=== PATIENT | male | born 1990 | race African-American/Black ===

== ENCOUNTER 2017-01-30 18:42 | Emergency (ER) | payer MEDICAID ==
[~2017-01-30] VITALS: Ht 198.1 cm; Wt 105.0 kg
[~2017-01-30 18:42] MED LIST: GUAI100G
[2017-01-30] MEDS ORDERED: KETOROLAC 30MG/ML VIAL IV STA (20:24)
[2017-01-30] MEDS ORDERED: ONDANSETRON HCL 4MG/2ML VIAL IV STA (20:24)
[2017-01-30 20:46] LABS: BASOPHILS % 0.4 % (0.0-2.0); EOSINOPHILS % 0.7 % (0.0-5.0); HEMATOCRIT. 39.1 % (42.0-52.0); HEMOGLOBIN. 13.1 g/dL (14.0-18.0); LYMPHOCYTES % 37.2 % (20.0-50.0); MEAN CORPUSCULAR HEMOGLOBIN 30.9 pg (28.0-32.0); MEAN CORPUSCULAR VOLUME 92.2 fL (80.0-94.0); MEAN PLATELET VOLUME 7.1 fl (7.4-10.4); MONOCYTES % 9.2 % (2.0-8.0); NEUTROPHILS % 52.5 % (40.0-76.0); PLATELET 194 x1000/uL (130-400); RED BLOOD CELL COUNT 4.24 mill/uL (4.7-6.1)
[2017-01-30 20:51] LABS: D-DIMER 1.2 mg/L FEU (<0.50); INR 1.1; PARTIAL THROMBOPLASTIN TIME 28.2 sec (23.4-31.0); PROTHROMBIN TIME 11.2 sec (9.4-11.6)
[2017-01-30 20:57] LABS: CARBON DIOXIDE 26 mEq/L (21-32); CHLORIDE 106 mEq/L (98-107); ETHANOL BLOOD < 10 mg/dL; TROPONIN I < 0.02 ng/mL (0.00-0.04)
[2017-01-30 22:45] VITALS: BP 104/51
[2017-01-30 23:31] LABS: *AMPHETAMINES SCREEN URINE NEGATIVE (NEGATIVE); *BARBITURATES SCREEN URINE NEGATIVE (NEGATIVE); *BENZODIAZEPINES SCREEN URINE NEGATIVE (NEGATIVE); *COCAINE SCREEN URINE NEGATIVE (NEGATIVE); CANNABINOID URINE SCREEN NEGATIVE (NEGATIVE); METHADONE URINE SCREEN NEGATIVE (NEGATIVE); OPIATES URINE SCREEN NEGATIVE (NEGATIVE); PHENCYCLIDINE URINE SCREEN NEGATIVE (NEGATIVE)
== END 2017-01-31 00:10 | disposition home or self-care (01) ==
LOC: ER 21:57
DX: R07.89 Other chest pain (principal)
CPT/HCPCS: 36415; 71010; 78582; 80053; 80305; 83690; 83880; 84443; 84484; 85025; 85379; 85610; 85730; 93005; 96374; 96375; 99285; A9540; A9558; G0482; J1885; J2405; Z7610

== ENCOUNTER 2018-01-20 14:53 | Emergency (ER) | payer SELFPAY ==
[~2018-01-20] VITALS: Ht 198.1 cm; Wt 109.0 kg
[2018-01-20] MEDS ORDERED: PREDNISONE 20MG TABLET PO ONE (17:30)
[2018-01-20 18:11] VITALS: BP 121/72
== END 2018-01-20 18:14 | disposition home or self-care (01) ==
LOC: ER 16:58
DX: L25.8 Unspecified contact dermatitis due to other agents (principal); Z98.890 Other specified postprocedural states
CPT/HCPCS: 99283; J7512

== ENCOUNTER 2019-04-06 18:24 | Emergency (ER) | payer MEDICAID ==
[~2019-04-06] VITALS: Ht 198.1 cm; Wt 105.0 kg
[2019-04-06] MEDS ORDERED: IBUPROFEN 600MG TABLET PO ONE (20:30)
[2019-04-06] MEDS ORDERED: CEPHALEXIN 250MG CAPSULE PO ONE (20:30)
[2019-04-06] MEDS ORDERED: AMOXICILLIN/POTASSIUM CLAVULANATE 875/125MG TAB PO ONE (20:45)
[2019-04-06 21:12] VITALS: BP 112/77
== END 2019-04-06 21:14 | disposition home or self-care (01) ==
LOC: ER 18:35
DX: S31.25XA Open bite of penis, initial encounter (principal); Z98.890 Other specified postprocedural states; W50.3XXA Accidental bite by another person, initial encounter; Y93.89 Activity, other specified; Y92.89 Other specified places as the place of occurrence of the external cause; Y99.8 Other external cause status
CPT/HCPCS: 99283